=== PATIENT | male | born 2000 | race Caucasian/White ===

== ENCOUNTER 2021-07-01 12:05 | Emergency (ER) | payer OTHER ==
--- NOTE | 2021-07-01 12:35 | ED ---
Wound/Laceration HPI - General Source: patient, RN notes reviewed Mode of arrival: ambulatory Limitations: no limitations <Neto Cano - Last Filed: 07/01/21 12:33> <Lori Bullock - Last Filed: 07/01/21 15:37> - General Chief Complaint: Wound/Laceration Stated Complaint: [facility] Finger lac Time Seen by Provider: 07/01/21 12:30 - History of Present Illness Initial Comments: This a 21-year-old male presents emergency Department chief complaint laceration to his left hand fifth digit. Patient states he was using a razor blade causes laceration to his left hand fifth digit. Patient's last tetanus was in 2019. Patient denies any decreased range of motion no paresthesias. (Neto Cano) - Related Data Allergies Allergy/AdvReac Type Severity Reaction Status Date / Time No Known Allergies Allergy Verified 07/01/21 12:33 Review of Systems ROS Other: All systems not noted in ROS Statement are negative. <Neto Cano - Last Filed: 07/01/21 12:33> ROS Other: All systems not noted in ROS Statement are negative. <Lori Bullock - Last Filed: 07/01/21 15:37> ROS Statement: Those systems with pertinent positive or pertinent negative responses have been documented in the HPI. General Exam General appearance: alert, in no apparent distress Head exam: Present: atraumatic, normocephalic, normal inspection <Neto Cano - Last Filed: 07/01/21 12:33> <Lori Bullock - Last Filed: 07/01/21 15:37> - General Exam Comments Initial Comments: GENERAL: Patient is well-developed and well-nourished. Patient is nontoxic and in no acute distress. HEAD: Atraumatic, normocephalic. EYES: Pupils equal round and reactive to light, extraocular movements intact, sclera anicteric, conjunctiva are normal. Eyelids were unremarkable. LUNGS: Unlabored respirations. Breath sounds clear to auscultation bilaterally and equal. No wheezes rales or rhonchi. HEART: Regular rate and rhythm without murmurs, rubs or gallops. ABDOMEN: Soft, nontender, normoactive bowel sounds. : Deferred MUSCULOSKELETAL: Normal extremities with adequate strength and normal range of motion, no pitting or edema. No clubbing or cyanosis. SKIN: Warm, Dry, normal turgor, no rashes. Patient has a 1 cm laceration to his left pinky finger, palmar aspect. Bleeding is controlled. (Lori Bullock) Course Vital Signs 07/01/21 12:33 Temperature 98.2 F Pulse Rate 86 Respiratory 16 Rate Blood Pressure 126/75 O2 Sat by Pulse 100 Oximetry Procedures - Laceration Laceration #1 Consent Obtained: verbal consent Indication: laceration Site: upper extremity (Last fifth digit, palmar aspect) Size (cm): 1 Description: linear Depth: simple, single layer Anesthetic Used: lidocaine 1% Anesthesia Technique: local infiltration Amount (mls): 2 Pre-repair: irrigated extensively Type of Sutures: nylon Size of Sutures: 5-0 Number of Sutures: 3 Technique: simple, interrupted Patient Tolerated Procedure: well <Lori Bullock - Last Filed: 07/01/21 15:37> Medical Decision Making <Lori Bullock - Last Filed: 07/01/21 15:37> - Medical Decision Making Patient is a 21-year-old male here with a 1 cm laceration to the left fifth digit from a razor blade at work. No active bleeding. Patient's wound was cleaned, closed with 3, 5-0 sutures. He tolerated procedure well. His tetanus vaccine is up-to-date. He is stable for discharge. (Lori Bullock) Disposition <Neto Cano - Last Filed: 07/01/21 12:33> Is patient prescribed a controlled substance at d/c from ED?: No Time of Disposition: 15:37 <Lori Bullock - Last Filed: 07/01/21 15:37> Clinical Impression: Laceration of left little finger Disposition: HOME SELF-CARE Condition: Stable Instructions (If sedation given, give patient instructions): Care For Your Stitches (ED) Additional Instructions: Please return to the Emergency Department if symptoms worsen or any other concerns. Stitches need to removed in 7-10 days. Keep area clean and dry. Keep covered while working. Referrals: None,Stated [Primary Care Provider] - 1-2 days
[2021-07-01 12:36] VITALS: BP 126/75; PULSE 86; RESP 16; TEMP 98.2
[2021-07-01] MEDS ORDERED: LIDOCAINE 1% INJ 10MG/ML (20 ML MDV) SQ ONE (14:48)
== END 2021-07-01 15:45 | disposition home or self-care (01) ==
LOC: EC 12:05
DX: S61.217A Laceration without foreign body of left little finger without damage to nail, initial encounter (principal); W26.8XXA Contact with other sharp object(s), not elsewhere classified, initial encounter
CPT/HCPCS: 99282; 12001; J2001